=== PATIENT | female | born 1955 | race Caucasian/White ===

== ENCOUNTER 2022-01-25 15:09 | Emergency (ER) | payer OTHER ==
[~2022-01-25] VITALS: Ht 160 cm; Wt 90.7 kg
[~2022-01-25 15:09] MED LIST: SEPTRA DS TABLE1 TAB PO
[2022-01-25] MEDS ORDERED: PEPCID AC20 MG PO (18:38)
[2022-01-25] MEDS ORDERED: LEVSIN/SL0.125 MG SL (18:38)
[2022-01-25] MEDS ORDERED: CIPRO500 MG PO (18:38)
[2022-01-25] MEDS ORDERED: METRONIDAZOLE500 MG PO (18:38)
== END 2022-01-25 19:30 | disposition home or self-care (01) ==
LOC: ER 15:09
DX: K57.32 Diverticulitis of large intestine without perforation or abscess without bleeding (principal); I10 Essential (primary) hypertension